=== PATIENT | female | born 1945 ===

== ENCOUNTER 2023-01-11 06:39 | Day surgery (SDC) | payer OTHER ==
[~2023-01-11] VITALS: Ht 152.4 cm; Wt 63.5 kg
[~2023-01-11 06:39] MED LIST: AMLODI PO; LOSART PO
[2023-01-11] MEDS ORDERED: IBU600 MG PO (10:05)
== END 2023-01-11 15:05 | disposition home or self-care (01) ==
LOC: CIR.AMB 06:39
PROVIDERS: ATTEND Obstetrics & Gynecology Gynecology
DX: N81.3 Complete uterovaginal prolapse (principal); Z20.822 Contact with and (suspected) exposure to COVID-19; I10 Essential (primary) hypertension